=== PATIENT | female | born 1950 | race Caucasian/White ===

== ENCOUNTER 2022-04-01 16:53 | Emergency (ER) | payer OTHER, BC ==
[2022-04-01 17:42] VITALS: BP 134/74; PULSE 77; RESP 20; TEMP 98.4; BMI 33.3
[2022-04-01 17:56] LABS: HEMATOCRIT 38.1 % (32.4-45.2); HEMOGLOBIN 13.3 G/dL (10.7-15.3); MCH 29.5 pg (25.7-33.7); MCHC 34.9 g/dl (32.0-36.0); MEAN CELL VOLUME 84.6 fl (80-96); MEAN PLT VOLUME 8.9 fl (7.5-11.1); PLATELET COUNT 237.3 10^3/uL (134-434); RDW 14.6 % (11.6-15.6); WHITE BLOOD COUNT 8.9 10^3/uL (4.0-10.8)
[2022-04-01 18:08] LABS: BILIRUBIN,TOTAL 0.5 mg/dl (0.2-1); CALCIUM 9.2 mg/dl (8.5-10); CREATININE 1.1 mg/dl (0.55-1.3); TOT PROT 7.5 g/dl (6.4-8.2)
[2022-04-01 19:12] LABS: PLATELET ESTIMATE ADEQUATE
== END 2022-04-01 18:27 | disposition home or self-care (01) ==
LOC: FER 16:53
DX: R79.89 Other specified abnormal findings of blood chemistry (principal)
CPT/HCPCS: 36415; 80053; 85027; 99283-25

== ENCOUNTER 2024-01-26 13:24 | Emergency (ER) | payer OTHER, BC ==
[2024-01-26 14:29] VITALS: TEMP 98.2; BMI 31.9
[2024-01-26] MEDS ORDERED: ACETAMINOPHEN 325 MG TABLET (FP) ONE (15:27)
[2024-01-26] MEDS: ACETAMINOPHEN 325 MG TABLET (FP) PO ONE (15:31)
[2024-01-26 19:11] VITALS: BP 148/76; PULSE 59; RESP 18
== END 2024-01-26 19:10 | disposition home or self-care (01) ==
LOC: JER 13:24
DX: R51.9 Headache, unspecified (principal); M54.2 Cervicalgia; W18.30XA Fall on same level, unspecified, initial encounter
CPT/HCPCS: 70450-TC; 72125-TC; 99284-25